=== PATIENT | female | born 1980 | race Caucasian/White ===

== ENCOUNTER 2020-12-11 07:53 | Inpatient (IN) ==
[2020-12-11] MEDS ORDERED: DINOPROSTONE 10 MG INSERT PV ONE (09:35)
[2020-12-11] MEDS ORDERED: OXYTOCIN 30 UNITS/500 ML BAG IV PRN (09:35)
--- NOTE | 2020-12-11 09:45 | History & Physical Report ---
Date of Service December 11, 2020 Assessment & Plan (1) Elective induction of labor planned: 40-year-old -0-0-6 at 39 weeks of gestation schedule induction of labor at term, Vital signs stable afebrile, heart rate reassuring, GBS negative, Coronavirus testing is negative, Cervix unfavorable Plan to admit, monitor, labs, cervical ripening with Cervidil Patient understands induction and all questions were answered. (2) Grand multiparity: Admission and Anticipated Discharge Date Admission Date: December 11, 2020 History of Present Illness Primary Care Provider: Tereso Mott DO Patient is an 40-year-old -0-0-6 at 39 weeks of gestation who was scheduled for induction of labor at term due to grand multiparity. Patient has no complaints. She denies contractions, leakage of fluid or vaginal bleeding. She reports good movements. Her has been complicated by 1) AMA, NIPT testing was low risk 2) grand multiparity with history of macrosomia with G2, 4080 g with no complications, no history of gestational diabetes 3) class I obesity 4) history of migraines, on nortriptyline Allergies Allergy/AdvReac Type Severity Reaction Status Date / Time No Known Allergies Allergy Verified 12/11/20 08:11 Home Medications Medication Instructions Recorded Confirmed Type acetaminophen [Tylenol Extra 1,000 mg PO Q6H PRN 07/25/18 12/11/20 History Strength] ondansetron HCl [Zofran] 4 mg PO Q8H PRN 07/03/20 12/11/20 History 21-iron fu-folic acid 1 tab PO QAM 07/03/20 12/11/20 History [ Complete] nortriptyline 10 mg PO HS 12/11/20 12/11/20 History Patient History Medical History Abdominal pain affecting H pylori ulcer H/O migraine during Second trimester Surgical History Status post cholecystectomy Second trimester gallbladder removed. Social History Smoking Status: Never smoker Hx Alcohol Use: No Hx Substance Use: No Preferred Language: Maltese Buffer Operator Required: No Beliefs That Will Affect Care: None marital status: Current Living Situation: Spouse and Family Current Living Situation Comment: lives with and 6 children current occupational status: employed current occupation: works for [employer]. Feels Safe at Home: Yes Safety Concerns: Feels Safe At This Time Childhood Exposure to Second-Hand Smoke: No Assistive Devices: None OB History 6 FT [employer] History No h/o STD's, no h/o HSV/ Chlamydia/ GC Review of Systems All systems reviewed & are unremarkable except as noted in HPI & below Physical Exam Gastrointestinal (Abdomen): normal bowel sounds, soft, nontender, no hepatosplenomegaly (Gravid) Genitourinary: normal external appearance OB Exam Abdomen: + vertex Manual OB Exam: + cervical dilation 2 cm, + cervical effacement 50% and + station high OB Exam Monitor Tracing: + external uterine monitor used and + category I Results & Data ([facility]) Vital Signs (Past 12 Hours) Vital Signs Temp Pulse Resp BP 12/11/20 08:02 84 120/76 12/11/20 08:01 36.5 C 18
[2020-12-11 10:04] LABS: Hemoglobin 12.2 g/dL (12.0-16.0); Mean Corpuscular Hemoglobin 30.3 pg (25-34); Mean Corpuscular Hgb Conc 33.9 g/dL (32-36); Mean Corpuscular Volume 89.3 fL (80-100); Mean Platelet Volume 11.4 fL (7.4-10.4); Platelet Count 182 K/uL (130-400); RDW Coefficient of Variation 13.6 % (11.5-14.5); RDW Standard Deviation 44.7 fL (36.4-46.3); Red Blood Count 4.03 M/uL (4.2-5.4); White Blood Count 7.26 K/uL (4.8-10.8)
[2020-12-11 10:22] LABS: Albumin Level 2.8 gm/dl (3.4-5.0); BUN Creatinine Ratio 20.6 (10-20); Calcium 8.5 mg/dl (8.5-10.1); Creatinine Clr Calc Pharmacy 166.2 ml/min; Est GFR (African American) 143.2 ml/min; Est GFR (Non-African American) 123.6 ml/min; Potassium 3.6 mmol/L (3.5-5.1)
[2020-12-11 10:24] LABS: Albumin Globulin Ratio 0.7 (0.9-2); Bilirubin,Total 0.4 mg/dl (0.2-1); Globulin 4.2 gm/dl (2.5-4.0)
--- NOTE | 2020-12-11 18:38 | Obstetrical Progress Note ---
Date of Service December 11, 2020 Assessment & Plan Admission and Anticipated Discharge Date Admission Date: December 11, 2020 Subjective Patient is reevaluated. She feels irregular contractions every 20 minutes or so. They are not painful. No leakage of fluid or bleeding and baby is moving well. Vital signs stable afebrile, heart rate reassuring, Continue to monitor and cervical ripening All questions were answered Results & Data ([facility]) Vital Signs (Past 12 Hours) Vital Signs Temp Pulse Resp BP 12/11/20 15:01 37.1 C 75 18 116/71 12/11/20 11:02 73 120/72 12/11/20 11:00 37.1 C 18 12/11/20 08:02 84 120/76 12/11/20 08:01 36.5 C 18
--- NOTE | 2020-12-11 22:18 | Obstetrical Progress Note ---
Date of Service December 11, 2020 Assessment & Plan Admission and Anticipated Discharge Date Admission Date: December 11, 2020 Subjective Patient is reevalauated She denies ctxs/ LOF/VB/ pain +FM's VE; Cervidil is removed, 3 cm/ 30%/ -3 FHR categ I Belcher: No ctxs Continue to monitor and cervical ripening Results & Data ([facility]) Vital Signs (Past 12 Hours) Vital Signs Temp Pulse Resp BP 12/11/20 18:59 36.7 C 76 18 126/74 12/11/20 15:01 37.1 C 75 18 116/71 12/11/20 11:02 73 120/72 12/11/20 11:00 37.1 C 18
[2020-12-11] MEDS: miSOPROStoL 50 MCG TAB PO SCH (23:40)
[2020-12-12] MEDS: miSOPROStoL 50 MCG TAB PO SCH ×2 (03:58→09:18)
[2020-12-12] MEDS ORDERED: OXYTOCIN 30 UNITS/500 ML BAG IV PRN (07:39)
--- NOTE | 2020-12-12 08:59 | Labor Progress Brief Note ---
Date of Service December 12, 2020 Assessment & Plan Admission and Anticipated Discharge Date Admission Date: December 11, 2020 Physical Exam Genitourinary: Manual OB Exam: + cervical dilation 2 cm and 3 cm, + cervical effacement 50%, + station high and + amniotic fluid OB Exam Monitor Tracing: + external FHT monitor used, + external uterine monitor used, + category I and + normal FHT variability will start Oxytocin to augment labor Results & Data ([facility]) Vital Signs (Past 12 Hours) Vital Signs Temp Pulse Resp BP 12/12/20 07:30 37.1 C 73 18 117/72 12/12/20 03:57 74 135/75 12/12/20 03:56 36.6 C 18 12/11/20 23:40 36.8 C 77 18 130/82
[2020-12-12] MEDS: LACTATED RINGER'S 1,000 ML IV PRN ×2 (09:17→15:21)
--- NOTE | 2020-12-12 16:31 | Labor Progress Brief Note ---
Date of Service December 12, 2020 Assessment & Plan Admission and Anticipated Discharge Date Admission Date: December 11, 2020 Physical Exam Genitourinary: Manual OB Exam: + cervical dilation 2 cm and 3 cm, + cervical effacement 50% and + station high OB Exam Monitor Tracing: + external FHT monitor used, + external uterine monitor used, + category I and + normal FHT va riability No change in cervix all day. I explained that her cervix is high and unripe and she may want to consider going home to see if she goes in to labor on her own. She is an elective induction for patient convenience with no medical indication at this time. Results & Data ([facility]) Vital Signs (Past 12 Hours) Vital Signs Temp Pulse Resp BP 12/12/20 16:13 75 131/77 12/12/20 15:19 75 104/56 L 12/12/20 15:05 36.7 C 16 12/12/20 14:52 76 114/76 12/12/20 14:13 77 118/76 12/12/20 13:16 69 115/82 12/12/20 12:13 72 113/61 12/12/20 11:14 77 123/87 12/12/20 10:45 37.1 C 18 12/12/20 10:44 74 119/70 12/12/20 10:15 81 119/74 12/12/20 09:17 74 115/81 12/12/20 07:30 37.1 C 73 18 117/72
--- NOTE | 2020-12-15 11:25 | Discharge Summary (DS) ---
DATE OF ADMISSION: 12/11/2020 DATE OF DISCHARGE: 12/12/2020 REASON FOR ADMISSION AND HOSPITAL COURSE: The patient is a 40-year-old female, G7, P6, at 39 weeks o f gestation, scheduled for an induction that was elective without any medical indications. The patie nt had an unripped cervix. She was given Cervidil on the day of admission; she did not progress. Th e following day, she was started on Pitocin. She was on Pitocin all day and made no cervical change. The patient was given the option to stay to continue the induction into a possible third day or to be discharged and to go home to have a followup in the office and to spontaneously go into labor or t o be induced at a later date when the cervix is more favorable. The patient opted to go home. She was discharged home after discontinuation of the oxytocin. The patient was stable on discharge. Regular diet on discharge. Condition on discharge was stable. Followup will be in the office in 1 week. Job ID: [id number]
== END 2020-12-12 17:25 | disposition home or self-care (01) | DRG 833 ==
LOC: 4S1 07:53

== ENCOUNTER 2020-12-20 16:16 | Inpatient (IN) ==
[2020-12-20] MEDS ORDERED: OXYTOCIN 30 UNITS/500 ML BAG IV PRN ×2 (16:20→23:01)
[2020-12-20 17:23] LABS: Hematocrit (blood only) 35.9 % (37-47); Hemoglobin 12.3 g/dL (12.0-16.0); Mean Corpuscular Hemoglobin 29.9 pg (25-34); Mean Corpuscular Hgb Conc 34.3 g/dL (32-36); Mean Corpuscular Volume 87.3 fL (80-100); Mean Platelet Volume 11.2 fL (7.4-10.4); Platelet Count 175 K/uL (130-400); RDW Coefficient of Variation 13.8 % (11.5-14.5); Red Blood Count 4.11 M/uL (4.2-5.4); White Blood Count 6.29 K/uL (4.8-10.8)
--- NOTE | 2020-12-20 18:09 | Progress Note ---
Date of Service December 20, 2020 Subjective Pt admitted FHr; CAT1 Ctx; [id number] VE;/-2 PO Cytotec ordered Results & Data ([facility]) Vital Signs (Past 12 Hours) Vital Signs Temp Pulse Resp BP 12/20/20 17:13 36.7 C 90 18 118/73 12/20/20 16:54 90 118/73
[2020-12-20] MEDS ORDERED: miSOPROStoL 50 MCG TAB PO SCH (18:15)
--- NOTE | 2020-12-20 23:01 | Progress Note ---
Date of Service December 20, 2020 Assessment & Plan Admission and Anticipated Discharge Date Admission Date: December 20, 2020 Subjective Pt doing well FHR; CAT1 Ctx; 4-6mins VE; 50/-2 Will start Pitocin Results & Data ([facility]) Vital Signs (Past 12 Hours) Vital Signs Temp Pulse Resp BP 12/20/20 19:50 69 112/75 12/20/20 19:49 36.8 C 18 12/20/20 17:13 36.7 C 90 18 118/73 12/20/20 16:54 90 118/73
[2020-12-20] MEDS: LACTATED RINGER'S 1,000 ML IV PRN (23:13)
[2020-12-21] MEDS ORDERED: SODIUM CHLORIDE 0.9% INJ 10 ML VIAL ONE (01:02)
[2020-12-21] MEDS ORDERED: BUPIVACAINE 0.25% 30 ML VIAL ONE ×2 (01:02→04:41)
[2020-12-21] MEDS ORDERED: ePHEDrine sulfate 50 MG/ML AMP ONE (01:02)
[2020-12-21] MEDS ORDERED: fentaNYL citrate 100 MCG/2 ML VIAL ONE ×2 (01:02→04:41)
[2020-12-21] MEDS ORDERED: fentaNYL 2MCG/ML ROPIVACAINE 1.25MG/ML 100 ML BAG EPI ONE (01:03)
[2020-12-21] MEDS ORDERED: diphenhydrAMINE 50 MG/ML VIAL IV PRN (01:25)
[2020-12-21] MEDS ORDERED: ePHEDrine sulfate 50 MG/ML AMP IV PRN (01:25)
[2020-12-21] MEDS ORDERED: NALOXONE HCL 0.4 MG/1 ML VIAL/CARP IV PRN (01:25)
[2020-12-21] MEDS ORDERED: ONDANSETRON INJ 2 MG/ML 2 ML VIAL IV PRN (01:25)
[2020-12-21] MEDS ORDERED: NALOXONE HCL 1 MG in SODIUM CHLORIDE 0.9% 1000ML 1,000 ML IV PRN (01:25)
[2020-12-21] MEDS ORDERED: fentaNYL 2MCG/ML ROPIVACAINE 1.25MG/ML 100 ML BAG EPI PRN (01:25)
--- NOTE | 2020-12-21 01:25 | Anesthesiology Consultation ---
Date of Service December 21, 2020 Assessment & Plan ASA ASA2 Proposed Anesthesia Anesthesia Type: Labor Epidural Risk / Benefits Reviewed With: PT / POA / Parent / Guardian, Accepts Plan and Informed Consent Obtained History Height/Weight Height: 5 ft 2 in Weight: 95.708 kg Allergies Allergy/AdvReac Type Severity Reaction Status Date / Time No Known Allergies Allergy Verified 12/20/20 18:48 Medications Home Medications Medication Instructions Recorded Confirmed Last Taken acetaminophen [Tylenol Extra 1,000 mg PO Q6H PRN 07/25/18 12/20/20 12/09/20 21:00 Strength] Complete 1 tab PO QAM 07/03/20 12/20/20 12/10/20 09:00 ondansetron HCl [Zofran] 4 mg PO Q8H PRN 07/03/20 12/20/20 12/10/20 21:00 nortriptyline 10 mg PO HS 12/11/20 12/20/20 12/10/20 21:00 Active Medications Generic Name Dose Route Start Last Admin Trade Name Freq PRN Reason Stop Dose Admin Lactated Ringer's 1,000 mls @ 125 mls/hr 12/20/20 16:20 12/21/20 01:51 Lr IV 12/22/20 16:19 125 mls/hr .Q8H PRN Administration L&D Protocol Protocol Oxytocin 30 units in 500 mls @ 4 mls/hr 12/20/20 23:01 12/21/20 00:00 Pitocin IV 12/22/20 23:00 0.24 units/hr .Q24H PRN 4 mls/hr Labor Induction/Augmentation Titration Protocol 0.24 UNITS/HR Misoprostol 50 mcg 12/20/20 18:15 12/20/20 18:16 Misoprostol 50 Mcg Tab PO 01/19/21 18:14 50 mcg BID LEONILA Administration Ropivacaine 100 ml 12/21/20 01:25 12/21/20 01:49 Fentanyl 2mcg/Ml Ropivacaine 1.25mg/Ml 100 Ml Bag EPI 12/22/20 01:24 100 ml PRN PRN Administration Pain R/T Labor Protocol Past Medical History Medical History Abdominal pain affecting H pylori ulcer H/O migraine during Second trimester Exercise / Class Metabolic Activity II 4-5 Yardwork/Stairs/Walk up hill Past Surgical History Surgical History Status post cholecystectomy Second trimester gallbladder removed. Past Anesthesia History No Hx of Anesthesia Complications and No Family Hx of Anesthesia Complications History of PONV No Hx of PONV and No Hx of Motion Sickness Social History Smoking Status: Never smoker Hx Alcohol Use: No Hx Substance Use: No substance use type: does not use Review of Systems denies fever/cough/ colds/ chest pain/ SOB/ SANJU denies SANJU Physical Exam Vital Signs Last Vital Signs Temp 36.8 C 12/20/20 19:49 Pulse 73 12/21/20 01:59 Resp 18 12/20/20 19:49 BP 113/62 12/21/20 01:59 Pulse Ox 96 12/21/20 01:57 ENMT Mouth: no TMJ abnormality and no dentition abnormality Thyromental Distance: > or= 3.5 Finger Breadths Mallampati Class: II Neck neck extension not limited Respiratory normal respiratory effort; no respiratory distress Auscultation: lungs clear to auscultation bilaterally Cardiovascular Rate/Rhythm: regular rate and regular rhythm Neurologic moves all extremities Psychiatric Orientation: alert and oriented x 3 Testing Laboratory Results 12/20/20 17:09
[2020-12-21] MEDS: LACTATED RINGER'S 1,000 ML IV PRN (01:51)
--- NOTE | 2020-12-21 05:27 | Communication Note ---
Date of Service: December 21, 2020 asked o evaluate previous epidural because patient still painful. pt c/o sharp pains. pt is 5 cm. I decided to replace the epidural. sterile prep/drape/m ask/gloves used. L3-l4 palpated. 1% lidocaine infiltrated. 17 gauge touey to JENNY to air at 7cm. Catheter threaded to 12 cm. 1% lido wih epi 3cc injected. negative IV/IT. catheter taped. pt bolused with 100 mcg of fentanyl and 5 cc of .5% bupivicaine. see nursing notes for vs. vss throughout. pt now comfortable
[2020-12-21] MEDS ORDERED: SUPERCREAM 0.870% 15 GM JAR EXT PRN (06:31)
[2020-12-21] MEDS ORDERED: OXYTOCIN 30 UNITS/500 ML BAG IV PRN (06:31)
[2020-12-21] MEDS ORDERED: miSOPROStoL 200 MCG TAB PR ONE (06:31)
[2020-12-21] MEDS ORDERED: BENZOCAINE 20% AER SPR 82.5 GM CAN EXT PRN (06:31)
[2020-12-21] MEDS ORDERED: ACETAMINOPHEN 325 MG TAB PO PRN (06:31)
[2020-12-21] MEDS ORDERED: METHYLERGONOVINE MALEATE 0.2 MG/ML AMP IM ONE (06:31)
[2020-12-21] MEDS ORDERED: HYDROCORTISONE ACETATE 25 MG SUPP PR PRN (06:31)
[2020-12-21] MEDS ORDERED: DIPHTHERIA/TETANUS/PERTUSSIS 0.5 ML SYR/VIAL IM ONE (06:31)
[2020-12-21] MEDS ORDERED: bisacodyL 10 MG SUPP PR PRN (06:31)
[2020-12-21 06:40] LABS: Base Excess Cord Arterial Bld -5.5 mEq/L (-9-1.8); CO2 Cord Arterial Blood 85 mmHg (39.1-73.5); HCO3 Cord Arterial Blood 27 mmol/L (19.7-28.5); pH Cord Arterial Blood 7.12 (7.1-7.38)
[2020-12-21 06:42] LABS: Oxygen Sat Cord Arterial Blood < 60.0 % (<60); PO2 Cord Arterial Blood < 10 mmHg (4.1-31.7)
[2020-12-21 06:45] LABS: Base Excess Cord Venous Blood -5.6 mEq/L (-7.7-1.9); Cord Venous Blood HCO3 25 mmol/L (18.4-26.8); Cord Venous Blood PCO2 67 mmHg (30.4-57.2); Cord Venous Blood PO2 18 mmHg (14.1-43.3); Cord Venous Blood pH 7.19 (7.20-7.44); O2 Saturation Cord Venous Bld < 60.0 % (<68)
[2020-12-21] MEDS ORDERED: OXYTOCIN 20 UNITS in LACTATED RINGER'S 1,000 ML IV SCH (07:00)
[2020-12-21] MEDS ORDERED: TERBUTALINE SULFATE 1 MG/ML VIAL SQ ONE (07:15)
--- NOTE | 2020-12-21 07:52 | Anesthesia Procedure Note ---
Date of Service December 21, 2020 Anesthesia Post Epidural Note Vital Signs Vital Signs: Temp Pulse Resp BP Pulse Ox 36.8 C 114 H 18 121/63 100 12/21/20 02:00 12/21/20 07:33 12/21/20 03:00 12/21/20 07:33 12/21/20 05:58 Pain Intensity Abdomen: Pain Intensity: 1 Notes Mental Status: alert / awake / arousable and participated in evaluation Nausea / Vomiting: adequately controlled Pain: adequately controlled Airway Patency, RR, SpO2: stable & adequate BP & HR: stable & adequate Hydration State: stable & adequate Neuraxial Anesthesia: was administered and sensory block is resolving Anesthetic Complications: no major complications apparent and Pt Satisfied with anesthetic care Epidural: Removed without complications and With tip intact Notes: Epidural site clean, dry and intact. No signs of edema, erythema or bruising at insertion site. Pt instructed to request anesthesia if she has residual lower extremity numbness or if she develops lower extremity pain or weakness, back pain or headache.
[2020-12-21] MEDS ORDERED: ONDANSETRON 4 MG OD TAB ONE (10:38)
[2020-12-21] MEDS ORDERED: ONDANSETRON 4 MG OD TAB PO PRN (11:00)
[2020-12-21] MEDS: PRENATAL VITAMIN 1 TAB PO SCH ×2 (15:09→19:26)
[2020-12-21] MEDS: DOCUSATE SODIUM 100 MG CAP PO SCH ×2 (15:09→19:26)
[2020-12-21] MEDS: IBUPROFEN 600 MG TAB PO PRN ×2 (16:55→23:52)
[2020-12-22 06:59] LABS: Hematocrit (blood only) 34.6 % (37-47); Hemoglobin 11.5 g/dL (12.0-16.0); Mean Corpuscular Hgb Conc 33.2 g/dL (32-36); Mean Corpuscular Volume 90.3 fL (80-100); Mean Platelet Volume 11.5 fL (7.4-10.4); Platelet Count 155 K/uL (130-400); RDW Coefficient of Variation 14.1 % (11.5-14.5); RDW Standard Deviation 46.4 fL (36.4-46.3); Red Blood Count 3.83 M/uL (4.2-5.4); White Blood Count 4.76 K/uL (4.8-10.8)
--- NOTE | 2020-12-22 08:12 | Obstetrical Progress Note ---
Date of Service December 22, 2020 Assessment & Plan Admission and Anticipated Discharge Date Admission Date: December 20, 2020 Subjective Patient is seen and examined. She feels well, no complaints. She wants to be discharged today Ambulating without dizziness Voiding without difficulty Tolerating regular diet with out N&V Bleeding is minimal No fever/ chills/ CP/ SOB/ N&V/ Leg pain Breast feeding without problems Vital Signs Temp Pulse Resp BP Pulse Ox 12/22/20 07:30 36.8 C 71 16 124/86 12/22/20 03:15 36.5 C 63 16 118/83 99 12/21/20 23:35 36.5 C 68 16 125/77 Lab Results 12/20/20 12/20/20 12/20/20 Range/Units 16:26 16:26 17:09 WBC 6.29 (4.8-10.8) K/uL RBC 4.11 L (4.2-5.4) M/uL Hgb 12.3 (12.0-16.0) g/dL Hct 35.9 L (37-47) % MCV 87.3 (80-100) fL MCH 29.9 (25-34) pg MCHC 34.3 (32-36) g/dL RDW Std Deviation 44.0 (36.4-46.3) fL RDW Coeff of Estefania 13.8 (11.5-14.5) % Plt Count 175 (130-400) K/uL MPV 11.2 H (7.4-10.4) fL Cord ABG pH (7.1-7.38) Cord ABG pCO2 (39.1-73.5) mmHg Cord ABG pO2 (4.1-31.7) mmHg Cord ABG HCO3 (19.7-28.5) mmol/L Cord ABG Base Excess (-9-1.8) mEq/L Cord ABG O2 Sat (<60) % Cord VBG pH (7.20-7.44) Cord VBG pCO2 (30.4-57.2) mmHg Cord VBG pO2 (14.1-43.3) mmHg Cord VBG HCO3 (18.4-26.8) mmol/L Cord VBG Base Excess (-7.7-1.9) mEq/L Cord VBG O2 Sat (<68) % Barometric Pressure mm/Hg Blood Gas Comments COVID-19 [facility] SARS-CoV-2, RNA, NAAT NEGATIVE (NEGATIVE) 12/21/20 12/21/20 12/22/20 Range/Units 06:10 06:10 06:13 WBC 4.76 L (4.8-10.8) K/uL RBC 3.83 L (4.2-5.4) M/uL Hgb 11.5 L (12.0-16.0) g/dL Hct 34.6 L (37-47) % MCV 90.3 (80-100) fL MCH 30.0 (25-34) pg MCHC 33.2 (32-36) g/dL RDW Std Deviation 46.4 H (36.4-46.3) fL RDW Coeff of Estefania 14.1 (11.5-14.5) % Plt Count 155 (130-400) K/uL MPV 11.5 H (7.4-10.4) fL Cord ABG pH 7.12 (7.1-7.38) Cord ABG pCO2 85 H (39.1-73.5) mmHg Cord ABG pO2 < 10 (4.1-31.7) mmHg Cord ABG HCO3 27 (19.7-28.5) mmol/L Cord ABG Base Excess -5.5 (-9-1.8) mEq/L Cord ABG O2 Sat < 60.0 (<60) % Cord VBG pH 7.19 L (7.20-7.44) Cord VBG pCO2 67 H (30.4-57.2) mmHg Cord VBG pO2 18 (14.1-43.3) mmHg Cord VBG HCO3 25 (18.4-26.8) mmol/L Cord VBG Base Excess -5.6 (-7.7-1.9) mEq/L Cord VBG O2 Sat < 60.0 (<68) % Barometric Pressure 729.1 729.2 mm/Hg Blood Gas Comments DING DING COVID-19 Eval Order SARS-CoV-2, RNA, NAAT (NEGATIVE) PE: General: Alert, orientedx3, NAD Abd: soft, NT, fundus firm, below Umbilicus Perineum intact, Lochia rubra minimal Ext; NT, no edema AP: 40 yo s/p , ppd# 1 VSS Afebrile doing well Continue routine care All questions were answered Discussed when to call D/C home , f/u in office Results & Data ([facility]) Vital Signs (Past 12 Hours) Vital Signs Temp Pulse Resp BP Pulse Ox 12/22/20 07:30 36.8 C 71 16 124/86 12/22/20 03:15 36.5 C 63 16 118/83 99 12/21/20 23:35 36.5 C 68 16 125/77
--- NOTE | 2020-12-22 08:17 | Delivery Summary ---
VAGINAL DELIVERY NOTE HOSPITAL COURSE: The patient underwent spontaneous rupture of membranes, which was clear. This was done when she was fully dilated and the heart rate from the monitor showed decreased variability. scalp electrode was therefore placed on scalp without difficulty. The patient began to experience nausea and vomiting. Blood pressure showed hypotension. Pitocin was therefore stopped at that point. She had been on 6 mUs of Pitocin. The heart rate showed bradycardia at this point into the 90s. The patient was asked to start pushing. She pushed effectively and quickly and delivered a live infant. There was nuchal cord and terminal meconium. Nuchal cord was easily reduced. was placed on mother's abdomen. Cord was clamped and cut. Pediatric team had been called into the delivery. Apgars as per pediatrics was 1 and 9 at one and five minutes respectively. Details of 's care is in the pediatric record. Inspection of the perineum showed no lacerations or tears. All instruments were removed from the vagina including sponges and retractors and accounted for x2. Estimated blood loss was 450 mL. The infant and mother are doing well in recovery. Job ID: [id number] [facility]
[2020-12-22] MEDS: IBUPROFEN 600 MG TAB PO PRN (08:22)
[2020-12-22] MEDS: DOCUSATE SODIUM 100 MG CAP PO SCH (08:22)
[2020-12-22] MEDS: PRENATAL VITAMIN 1 TAB PO SCH (08:22)
[2020-12-22] MEDS ORDERED: bisacodyL 5 MG TABEC PO SCH (20:00)
== END 2020-12-22 10:25 | disposition home or self-care (01) | DRG 807 ==
LOC: OPB 16:16 → 4S1 16:18 → 4S2 12-21 08:45